=== PATIENT | female | born 1960 | race American Indian/Alaskan Native ===

== ENCOUNTER 2018-02-14 11:19 | Outpatient (CLI) | payer OTHER ==
--- NOTE | 2018-02-14 16:35 | Mammography Report ---
BILATERAL DIGITAL SCREENING MAMMOGRAM with CAD: 02/14/18 11:19:00 CLINICAL: Routine screening. COMPARISON:04/05/16 FINDINGS: The breasts are almost entirely fatty. No mass, architectural distortion or suspicious calcifications. IMPRESSION: No mammographic evidence of malignancy. BI-RADS CATEGORY: 1 - - Negative RECOMMENDATION: Routine mammographic screening in one year. COMMENT: Patient follow-up letters are generated by our [employer] application.
== END 2018-02-14 11:20 | disposition home or self-care (01) ==
LOC: SPVWC 11:19
PROVIDERS: ATTEND General Practice
DX: Z12.31 Encounter for screening mammogram for malignant neoplasm of breast (principal)
CPT/HCPCS: 77067

== ENCOUNTER 2020-03-12 10:13 | Outpatient (CLI) | payer OTHER ==
--- NOTE | 2020-03-12 11:30 | XRay Report ---
LUMBOSACRAL SPINE 3 VIEWS INDICATION: LSPINE PAIN AND RIGHT KNEE PAIN. COMPARISON: None. IMPRESSION: Normal alignment. Moderate disc space narrowing and facet arthropathy is identified at L5-S1. Mild degenerative changes are noted at the remaining levels. No acute osseous or soft tissue abnormality. RIGHT HIP 2 VIEWS INDICATION: LSPINE PAIN AND RIGHT KNEE PAIN. COMPARISON: None. IMPRESSION: No acute osseous or soft tissue abnormality. No significant DJD. Signer Name: Fabiano Hampton Jr, MD Signed: 03/12/2020 11:25 AM Workstation Name: [id number]
== END 2020-03-12 10:14 | disposition home or self-care (01) ==
LOC: XRAY 10:13
PROVIDERS: ATTEND Internal Medicine
DX: M48.07 Spinal stenosis, lumbosacral region (principal); M47.816 Spondylosis without myelopathy or radiculopathy, lumbar region; M17.4 Other bilateral secondary osteoarthritis of knee
CPT/HCPCS: 72100